=== PATIENT | female | born 1985 | race Caucasian/White ===

== ENCOUNTER 2017-01-27 06:05 | Day surgery (SDC) | payer MEDICAID ==
[~2017-01-27] VITALS: Ht 165.1 cm; Wt 135.6 kg
--- NOTE | ~2017-01-27 | OR ---
PATIENT'S NAME: TOM HOLGUIN [facility] AGE: 31 Y [address] ROOM: [address] [place], [place] [address] LOCATION: [facility] [place] ADMIT DATE: 01/27/2017 OR/Procedure Report DISCHARGE DATE: FAMILY PHYSICIAN: Andrew Guardado ATTENDING PHYSICIAN: PAYAM TOTH SURGEON: Payam Toth MD JAVA MOBILE DEVELOPER: Payam Cochran. 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 Retained hardware, right femur and tibia (status post previous ACL reconstruction and previous medial collateral ligament repair). PROCEDURES PERFORMED: Revision, right anterior cruciate ligament reconstruction. Removal of hardware from right proximal tibia. Right medial collateral ligament reconstruction. Partial lateral meniscectomy. ANESTHESIA: General endotracheal anesthesia plus subcutaneous and periarticular local anesthesia (Marcaine and morphine). DRAINS: None. SPECIMEN: None. COMPLICATIONS: None. TOURNIQUET TIME: Approximately 2 hours. IMPLANTS: Benja AperFix 9 mm x 24 mm femoral implant (implanted at medial femoral epicondyle for medial collateral ligament reconstruction). Arthrex 10 mm GraftBolt (tibial fixation of ACL reconstruction). Parcus 20 mm loop large femoral implant (femoral fixation of anterior cruciate ligament reconstruction). Synthes 6.5 mm partially threaded cancellous screw (tibial fixation of medial collateral ligament reconstruction). Reimplantation of spiked ligament washer (removed and reimplanted). EXPLANTS: [place] tibial implant. Partially threaded 6.5 mm cancellous screw (removed from tibia). ESTIMATED BLOOD LOSS: Approximately 10 mL. PATIENT'S NAME: TOM HOLGUIN [facility] AGE: 31 Y [address] ROOM: [facility] [place] [place], [place] [address] LOCATION: [facility] [place] ADMIT DATE: 01/27/2017 OR/Procedure Report DISCHARGE DATE: FAMILY PHYSICIAN: Andrew Guardado ATTENDING PHYSICIAN: PAYAM TOTH COMPLICATIONS: None. INDICATION FOR PROCEDURE: Ms. Holguin is a 31-year-old female presenting with combined anterior cruciate ligament and medial collateral ligament insufficiency. The patient had sustained a multi-ligament injury to her right knee several years ago and underwent a medial collateral ligament repair and anterior cruciate ligament reconstruction. She was going through a difficult time socially at that time and acknowledges that she was completely noncompliant with her postoperative rehabilitation program. She was lost to follow-up for several years, but now presents with laxity of anterior cruciate ligament and medial collateral ligament with significant associated clinical symptoms. Risks, benefits, limitations, and alternatives to the procedure have been thoroughly reviewed and informed consent has been granted. We have specifically reviewed risks and implications of infection, neurovascular complications, deep venous thrombosis, graft laxity, knee stiffness, graft failure, and potential need for further surgery. Informed consent granted. The patient has also given informed consent to receive an allograft tissue. DESCRIPTION OF PROCEDURE: The patient was positioned supine. General endotracheal anesthesia and prophylactic antibiotics were administered. A well-padded pneumatic tourniquet was placed around her right proximal thigh. The right lower extremity was prepped and draped with vigilant sterile technique. Examination under anesthesia demonstrated a very large soft tissue envelope surrounding the knee, calf, and thigh. There were no active skin lesions or masses. Range of motion was from 15 degrees of hyperextension to 130 degrees of flexion. There was approximately 8 mm of medial collateral ligament laxity in full extension and 1 cm of medial collateral ligament laxity in mid flexion. Negative posterior drawer. No lateral collateral ligament laxity. 2A Nelly with a 2+ pivot shift. The medial proximal tibia was approached through the preexisting anteromedial tibial scar. The medial femoral epicondyle was approached through the preexisting longitudinal medial scar. Dissection proceeded through several centimeters of subcutaneous adipose tissue in both locations. The tibial screw and washer were identified and removed. The entrance of the tibial tunnel was identified. There was bony overgrowth of the tunnel. This was removed in order to remove the tibial screw and the side panels of the previous tibial implant. Fluoroscopy was utilized to identify the previous 2 metallic suture anchors at the medial femoral epicondyle. These had been countersunk, but the heads could be identified after debridement of the cortical bone with a rongeur. PATIENT'S NAME: TOM HOLGUIN [facility] AGE: 31 Y [address] ROOM: [place] [address] LOCATION: [facility] [place] ADMIT DATE: 01/27/2017 OR/Procedure Report DISCHARGE DATE: FAMILY PHYSICIAN: Andrew Guardado ATTENDING PHYSICIAN: PAYAM TOTH The reverse coring reamer device from the Synthes Broken Screw Removal Set was utilized to dissect around the heads of the suture anchors, but the heads stripped upon attempted removal. Thus, the suture anchors were left in place, and the tunnel for the femoral implant for the medial collateral ligament reconstruction was made immediately proximal to the indwelling suture anchors. This was drilled over a guidewire to a diameter of 9 mm. Standard inferomedial and inferolateral arthroscopy portals were established, and a thorough diagnostic arthroscopy of the right knee was performed with the following findings and interventions: There was no synovitis. There were no loose bodies. There was 1 remaining strand of the previous quadruple strand anterior cruciate ligament reconstruction, but this was attenuated, loose, and not sufficiently functional. There were torn remnants of the remainder of the anterior cruciate ligament graft. Remnants of the previous ACL graft were removed. The notchplasty was performed. The femoral tunnel was identified, but the previous femoral implant had been countersunk a few millimeters and was not readily accessible. Acceptable revision femoral tunnel position could be created slightly lower on the lateral femoral wall, and this tunnel was drilled to 10 mm over a flexible [employer] guidewire with a flexible reamer through the anteromedial portal with the knee hyperflexed. The guidewire was placed through the preexisting tibial tunnel and the 10 mm reamer was utilized to revise the tunnel. Reamer contacted a considerable amount of bone during the reaming process. Tibial tunnel position remained optimal. Both medial collateral ligament graft and the ACL graft consisted of quadruple strand semitendinosus allografts, which had been prepared on the back table with each end of the respective graft tagged with Arthrex FiberLoop suture. The ACL graft sized at 10 mm in diameter and the medial collateral ligament graft sized at 8 mm in diameter. The medial collateral ligament graft was loaded on the AperFix implant and the ACL graft was loaded on the Parcus implant. The AperFix device was deployed within the medial epicondyle tunnel, and this obtained excellent purchase. The MCL graft fibers were tunneled between the medial epicondyle incision and the tibial incision. The ACL graft was passed through the tibial tunnel and into the femoral tunnel. The Parcus device was deployed at the lateral femoral cortex. Fluoroscopy was utilized to confirm optimal position of the medial epicondyle tunnel as well as to confirm full deployment of the Parcus device at the lateral femoral cortex. The ACL graft was tensioned first while a varus force was applied to the knee in mid flexion with a concomitant posterior drawer force applied to the tibia. All 4 graft strands were tensioned as the GraftBolt device was deployed over a guidewire after dilating the tunnel to 10 mm. Excellent purchase was obtained. With a varus force applied, the medial collateral ligament graft strands were tensioned and fixed beneath the spiked ligament washer at the PATIENT'S NAME: TOM HOLGUIN [facility] AGE: 31 Y [address] ROOM: [place] [address] LOCATION: [facility] [place] ADMIT DATE: 01/27/2017 OR/Procedure Report DISCHARGE DATE: FAMILY PHYSICIAN: Andrew Guardado ATTENDING PHYSICIAN: PAYAM TOTH. The knee was placed through a full range of motion. The ACL and medial collateral ligament graft had been confirmed to be nearly perfectly isometric prior to graft fixation. The pivot shift had been eliminated. Nelly was a solid 1A (with virtually no excursion to Nelly testing and an excellent endpoint). There was no residual medial collateral ligament laxity. All incisions were infiltrated with local anesthetic and morphine. All incisions had been thoroughly irrigated with bacteriostatic saline lavage (containing bacitracin) several times throughout the case. The femoral and tibial incisions were closed with simple deep interrupted 0 Vicryl. Closure was obtained in layers due to the depth of the overlying soft tissue. Skin was closed with superficial buried interrupted 2-0 Vicryl followed by running subcuticular 3-0 Monocryl suture, followed by Dermabond, followed by Steri- Strips with benzoin. The arthroscopy portals were closed with superficial buried interrupted 3-0 Monocryl sutures followed by Dermabond, followed by Steri-Strips with benzoin. The dressings consisted of Mepilex gauze followed by ABD pads and an Angelo wrap. A hinged knee brace was applied and locked in extension. There were no complications. MD RADU CRUMP/modl /[id number] d: 01/28/17 0853 t: 02/16/174, OPERATIVE SUMMARY
[~2017-01-27 06:05] MED LIST: KLONOPIN1 MG PO; ZANAFLEX4 MG PO; ZANTAC150 MG PO
--- NOTE | 2017-01-27 18:30 | NUR ---
Significant Event: Patient up to floor at 1640. Patient rating pain at an 7-10. Patient demanding on arrival to floor wanting mouthwash as she threw up downstairs in PACU and they didn't have any, a fan, a nicotine patch, and demanded pepsi when nurse offered to bring in some water for patient. Delegated pepsi, fan, and mouthwash to RN TELE. Nurse called on patient's nicotine patch. Patient then called virtual nurse and wanted the same exact things in addition to wanting pain medication and needing to go to the bathroom. In looking at what patient had been given for pain medication down in PACU, it was noted that no oral medication had been tried for patient. Nurse took down 2 mg of morphine to help get pain under control and norco 1 tab to help keep pain under control. Nurse explained this to patient when I got back down to the room. Patient stated that she couldn't take the pain medication without having something for nausea first. Nurse went back out and got patient reglan for nausea and gave that at 1727. After that patient wanted to give medication time to work and was able to snack on some sisi crackers and get something in her stomach. Patient also up to the bedside commode and voided a large amount. Patient able to pivot with 1 assist to and from commode. After patient back in bed nurse gave morphine and norco at 1740. Patient commented that the morphine went much better the way I gave it than down in recovery room because according to patient they pushed the medication in too fast and then followed it with a normal saline flush and then wondered why she was getting sick. Patient told them they pushed it too fast. Nurse gave morphine over 2-4 minutes and patient able to tolerate well. CSM good to right lower extremity. Does have some tingling to right foot as she thinks the block is starting to wear off that they did in surgery. Pedal pulse easily palpable and patient able to wiggle toes and flex and extend ankles. Ice to incision per Dr. Rivera's orders. Follow up: Continue to monitor.
--- NOTE | 2017-01-28 04:52 | NUR ---
Significant Event:pt alert and oriented x3. pleasant with staff and cares. pt to floor from or at 1640. immobilzer to right leg. pt states the muscle spasms are worse then the pain. prn soma given at hs and at 0345.pt leg elevated with ice on as often possible. hs rested well during night. tolerated food/liquid with no complications noted. iv sl at 0430. iv in right hand. pt up to bedside commade with no complications. drs to right knee is steri strips,dermabond,abo, mepiplex,blanka wrap and brace and is c/d/i. pt uses call light approp. pt denies numbneess, tingling. Follow up:
[2017-01-28] MEDS ORDERED: NICODERM / HABIT7 MG TRANS (12:10)
[2017-01-28] MEDS ORDERED: ASPIR 8181 MG PO (12:13)
[2017-01-28] MEDS ORDERED: PERCOCET 5-3251 EACH PO (12:13)
[2017-01-28] MEDS ORDERED: VALIUM5 MG PO (12:14)
--- NOTE | 2017-01-28 16:34 | NUR ---
Patient and both verbalize understanding of all discharge instructions. Reviewed all medications, when to call the doctor, dvt prevention, acitivity, WB status, getting walker/w/c, s/s infection, care of dressing/brace, etc. Both verbalize understanding of all instructions. All belongings home with patient. To car per w/c. states he will take care of getting w/c and walker.
== END 2017-01-28 14:30 | disposition disaster alternative care site (69) ==
LOC: GSDC 06:05 → GMSU 16:40 → GSDC 01-28 14:30
PROC: 0YQF4ZZ Repair Right Knee Region, Percutaneous Endoscopic Approach (ICD-10-PCS; principal; 2017-01-27)
PROC: 0SBC4ZZ Excision of Right Knee Joint, Percutaneous Endoscopic Approach (ICD-10-PCS; 2017-01-27)
DX: M23.611 Other spontaneous disruption of anterior cruciate ligament of right knee (principal); M23.51 Chronic instability of knee, right knee; S83.281A Other tear of lateral meniscus, current injury, right knee, initial encounter; F41.9 Anxiety disorder, unspecified; F32.9 Major depressive disorder, single episode, unspecified; F17.210 Nicotine dependence, cigarettes, uncomplicated; Z88.0 Allergy status to penicillin; Z88.8 Allergy status to other drugs, medicaments and biological substances; Z98.51 Tubal ligation status; Z90.49 Acquired absence of other specified parts of digestive tract; Z79.899 Other long term (current) drug therapy; Z68.42 Body mass index [BMI] 45.0-49.9, adult; X58.XXXA Exposure to other specified factors, initial encounter
CPT/HCPCS: C1713; C1768; J0131; J1100; J2250; J2270; J2405; J2550; J2765; J3010; J3480; J7050; J7120